=== PATIENT | female | born 1975 | race African-American/Black ===

== ENCOUNTER 2021-02-27 04:04 | Emergency (ER) | payer MEDICAID ==
[~2021-02-27] VITALS: Ht 167.6 cm; Wt 91.0 kg
[2021-02-27] MEDS ORDERED: ALBUTEROL (0.083%) 2.5MG/3ML NEB HHN STA (05:53)
[2021-02-27] MEDS ORDERED: IPRATROPIUM BROMIDE (0.02%) 0.5MG/2.5ML NEB HHN STA (05:53)
[2021-02-27] MEDS ORDERED: PREDNISONE 20MG TABLET PO ONE (06:00)
[2021-02-27] MEDS ORDERED: ALBU90AE INH (06:17)
[2021-02-27] MEDS ORDERED: P20 MT (06:17)
[2021-02-27 07:02] VITALS: BP 148/79
== END 2021-02-27 07:04 | disposition home or self-care (01) ==
LOC: ER 04:04
DX: J40 Bronchitis, not specified as acute or chronic (principal); I10 Essential (primary) hypertension; Z20.822 Contact with and (suspected) exposure to COVID-19
CPT/HCPCS: 71045; 94640; 99284; C9803; J7512; U0003; U0005; Z7610